=== PATIENT | female | born 1955 | race Caucasian/White ===

== ENCOUNTER 2018-11-30 17:36 | Inpatient (IN) | payer OTHER ==
[2018-11-30] MEDS ORDERED: HYDROCODONE/APAP (5/325) TAB NGT (19:00)
[2018-11-30] MEDS ORDERED: HYDROCODONE/APAP (5/325) TAB PO (19:00)
[2018-11-30] MEDS ORDERED: MECLIZINE 25 MG TAB PO (19:30)
[2018-11-30] MEDS ORDERED: ONDANSETRON 4 MG INJ IV (19:30)
[2018-11-30] MEDS ORDERED: INSULIN GLARGINE [LANTus] (100 UNITS/ML) SYG SC (20:00)
[2018-11-30] MEDS ORDERED: INSULIN ASPART [NOVOLOG] 3 ML PEN SC (21:00)
[2018-11-30] MEDS: PIPER-TAZO 3.375 GM IV (PMX) 100 ML IVPB (21:30)
[2018-11-30] MEDS: SOD CHLORIDE 0.9% 1,000 ML IV (21:30)
[2018-11-30] MEDS: LISINOPRIL 20 MG TAB PO (21:50)
[2018-11-30] MEDS: DOXYCYCLINE 100 MG TAB PO (21:50)
[2018-11-30] MEDS: METOPROLOL 25 MG TAB PO (21:51)
[2018-11-30] MEDS: INSULIN GLARGINE [LANTus] (100 UNITS/ML) SYG SC (22:01)
[2018-11-30] MEDS: INSULIN ASPART [NOVOLOG] 3 ML PEN SC (22:02)
[2018-11-30] MEDS: NA BICARBONATE 650 MG TAB PO (23:05)
[2018-12-01] MEDS: ACETAMINOPHEN 325 MG TAB PO ×3 (00:33→20:16)
[2018-12-01] MEDS: ACCU-CHEK XX (02:00)
[2018-12-01 05:15] LABS: ADD MAN DIFF? NO; BASOPHILS % 0.4 % (0.0-2.0); EOSINOPHILS # 0.1 10^3/ul (0.0-0.5); EOSINOPHILS % 0.7 % (0.0-7.0); HEMATOCRIT 33.7 % (37.0-47.0); HEMOGLOBIN 10.6 g/dl (12.0-16.0); LYMPHOCYTES # 1.5 10^3/ul (0.8-2.9); LYMPHOCYTES % 16.2 % (15.0-51.0); MEAN CORPUSCULAR HGB CONC 31.5 g/dl (32.0-37.0); MEAN PLATELET VOLUME 9.4 fl (7.4-10.4); MONOCYTE # 0.8 10^3/ul (0.3-0.9); MONOCYTES % 8.9 % (0.0-11.0); NEUTROPHIL # 6.6 10^3/ul (1.6-7.5); NEUTROPHILS % 72.9 % (39.0-77.0); PLATELET COUNT 242 10^3/UL (140-415); RED BLOOD COUNT 3.92 10^6/ul (4.20-5.40); RED CELL DISTRIBUTION WIDTH 12.9 % (11.5-14.5)
[2018-12-01 05:15] LABS: WHITE BLOOD COUNT 9.1 10^3/ul (4.8-10.8)
[2018-12-01] MEDS: PIPER-TAZO 3.375 GM IV (PMX) 100 ML IVPB ×3 (05:19→21:51)
[2018-12-01 05:46] LABS: ANION GAP 8 (5-13); BLOOD UREA NITROGEN 20 mg/dl (7-20); CALCIUM 8.2 mg/dl (8.4-10.2); CARBON DIOXIDE 26 mmol/L (21-31); CHLORIDE 107 mmol/L (97-110); CREATININE 1.13 mg/dl (0.44-1.00); Estimated GFR 48 mL/min (>60); GLUCOSE 218 mg/dl (70-220); POTASSIUM 3.8 mmol/L (3.5-5.1); SODIUM 141 mmol/L (135-144)
[2018-12-01] MEDS: DOXYCYCLINE 100 MG TAB PO ×2 (09:05→20:16)
[2018-12-01] MEDS: NA BICARBONATE 650 MG TAB PO ×2 (09:05→14:38)
[2018-12-01] MEDS: FERROUS SULFATE (EC) 325 MG TAB PO (09:06)
[2018-12-01] MEDS: METOPROLOL 25 MG TAB PO ×2 (09:06→20:21)
[2018-12-01] MEDS: FAMOTIDINE 20 MG TAB PO (09:06)
[2018-12-01] MEDS: LISINOPRIL 20 MG TAB PO ×2 (09:06→20:22)
[2018-12-01] MEDS: INSULIN ASPART [NOVOLOG] 3 ML PEN SC ×7 (09:12→20:35)
[2018-12-01] MEDS ORDERED: traMADol 50 MG TAB PO (16:30)
[2018-12-01] MEDS: SOD CHLORIDE 0.9% 1,000 ML IV (16:57)
[2018-12-01] MEDS: INSULIN GLARGINE [LANTus] (100 UNITS/ML) SYG SC (20:34)
[2018-12-02] MEDS: ACCU-CHEK XX (02:00)
[2018-12-02] MEDS: PIPER-TAZO 3.375 GM IV (PMX) 100 ML IVPB ×2 (05:13→14:04)
[2018-12-02 05:17] LABS: ADD MAN DIFF? NO
[2018-12-02 05:22] LABS: BASOPHIL # 0.1 10^3/ul (0.0-0.1); BASOPHILS % 0.5 % (0.0-2.0); EOSINOPHILS # 0.1 10^3/ul (0.0-0.5); EOSINOPHILS % 0.7 % (0.0-7.0); HEMATOCRIT 33.6 % (37.0-47.0); HEMOGLOBIN 10.8 g/dl (12.0-16.0); LYMPHOCYTES # 1.6 10^3/ul (0.8-2.9); LYMPHOCYTES % 16.2 % (15.0-51.0); MEAN CORPUSCULAR HEMOGLOBIN 27.5 pg (29.0-33.0); MEAN CORPUSCULAR HGB CONC 32.1 g/dl (32.0-37.0); MEAN CORPUSCULAR VOLUME 85.5 fl (82.0-101.0); MEAN PLATELET VOLUME 9.3 fl (7.4-10.4); MONOCYTE # 0.7 10^3/ul (0.3-0.9); NEUTROPHIL # 7.4 10^3/ul (1.6-7.5); NUCLEATED RED BLOOD CELLS% 0.2 /100WBC (0.0-0.0); PLATELET COUNT 285 10^3/UL (140-415); RED BLOOD COUNT 3.93 10^6/ul (4.20-5.40); RED CELL DISTRIBUTION WIDTH 12.8 % (11.5-14.5)
[2018-12-02 05:34] LABS: INR 1.22; PROTIME 15.5 Sec (11.9-14.9); PT RATIO 1.2
[2018-12-02 05:40] LABS: HEMOGLOBIN A1C 12.1 % (0-5.9)
[2018-12-02 05:54] LABS: ANION GAP 7 (5-13); BLOOD UREA NITROGEN 18 mg/dl (7-20); CALCIUM 8.1 mg/dl (8.4-10.2); CARBON DIOXIDE 27 mmol/L (21-31); CHLORIDE 107 mmol/L (97-110); CREATININE 1.14 mg/dl (0.44-1.00); Estimated GFR 48 mL/min (>60); GLUCOSE 155 mg/dl (70-220); POTASSIUM 3.7 mmol/L (3.5-5.1); SODIUM 141 mmol/L (135-144)
[2018-12-02] MEDS: DOXYCYCLINE 100 MG TAB PO (08:49)
[2018-12-02] MEDS: ACETAMINOPHEN 325 MG TAB PO ×2 (08:52→18:25)
[2018-12-02] MEDS: LISINOPRIL 20 MG TAB PO ×2 (09:11→20:33)
[2018-12-02] MEDS: METOPROLOL 25 MG TAB PO ×2 (09:11→20:33)
[2018-12-02] MEDS: FERROUS SULFATE (EC) 325 MG TAB PO (09:12)
[2018-12-02] MEDS: FAMOTIDINE 20 MG TAB PO (09:12)
[2018-12-02] MEDS: INSULIN ASPART [NOVOLOG] 3 ML PEN SC ×7 (09:13→20:40)
[2018-12-02] MEDS: SOD CHLORIDE 0.9% 1,000 ML IV (14:08)
[2018-12-02] MEDS ORDERED: GLUCAGON 1 MG INJ IM (17:00)
[2018-12-02] MEDS ORDERED: GLUCOSE GEL 15 GRAM TUBE PO ×2 (17:00)
[2018-12-02] MEDS ORDERED: DEXTROSE 50% 50 ML SYRINGE IV ×2 (17:00)
[2018-12-02] MEDS ORDERED: GLUCOSE GEL 15 GRAM TUBE BUCCAL (17:00)
[2018-12-02] MEDS ORDERED: NEOMYC/POLYMYX/BACIT 0.9 GM OINT (17:08)
[2018-12-02] MEDS: LINAGLIPTIN 5 MG TABLET PO (17:52)
[2018-12-02] MEDS: ENOXAPARIN 40 MG/0.4 ML SYG SC (17:55)
[2018-12-02] MEDS: NIFEdipine 10 MG CAP PO (19:45)
[2018-12-02] MEDS: AMOXICILLIN/CLAV 875 MG TAB PO (20:32)
[2018-12-02] MEDS: metroNIDAZOLE 250 MG TAB NGT (20:33)
[2018-12-02] MEDS: INSULIN GLARGINE [LANTus] (100 UNITS/ML) SYG SC (20:42)
[2018-12-02 20:49] LABS: ADD UMIC YES; UR ASCORBIC ACID NEGATIVE (NEGATIVE); UR BACTERIA FEW /HPF (NONE SEEN); UR BILIRUBIN (Dip) NEGATIVE (NEGATIVE); UR BLOOD (Dip) 1+ mg/dL (NEGATIVE); UR CLARITY SLIGHTLY CLOUDY (CLEAR); UR COLOR YELLOW (YELLOW); UR GLUCOSE (Dip) 1+ mg/dL (NEGATIVE); UR KETONES (Dip) NEGATIVE (NEGATIVE); UR LEUKOCYTE ESTERASE (Dip) NEGATIVE Leu/ul (NEGATIVE); UR NITRITE (Dip) NEGATIVE (NEGATIVE); UR RBC 6 /HPF (0-5); UR SPECIFIC GRAVITY (Dip) 1.014 (1.003-1.030); UR SQUAMOUS EPITHELIAL CELL FEW /HPF (FEW); UR TOTAL PROTEIN (Dip) 3+ mg/dl (NEGATIVE); UR UROBILINOGEN (Dip) NEGATIVE (NEGATIVE); UR WBC 2 /HPF (0-5)
[2018-12-02] MEDS: SACCHAROMYCES BOULARDII 250 MG CAP PO (21:53)
[2018-12-03] MEDS: NIFEdipine 10 MG CAP PO ×3 (00:50→12:51)
[2018-12-03] MEDS: ACCU-CHEK XX (03:00)
[2018-12-03 05:57] LABS: ADD MAN DIFF? NO
[2018-12-03 06:04] LABS: WHITE BLOOD COUNT 9.3 10^3/ul (4.8-10.8)
[2018-12-03 06:04] LABS: BASOPHIL # 0.1 10^3/ul (0.0-0.1); BASOPHILS % 0.5 % (0.0-2.0); EOSINOPHILS # 0.1 10^3/ul (0.0-0.5); EOSINOPHILS % 0.8 % (0.0-7.0); HEMATOCRIT 33.6 % (37.0-47.0); HEMOGLOBIN 10.5 g/dl (12.0-16.0); LYMPHOCYTES # 1.6 10^3/ul (0.8-2.9); LYMPHOCYTES % 16.9 % (15.0-51.0); MEAN CORPUSCULAR HEMOGLOBIN 26.9 pg (29.0-33.0); MEAN CORPUSCULAR HGB CONC 31.3 g/dl (32.0-37.0); MEAN CORPUSCULAR VOLUME 86.2 fl (82.0-101.0); MEAN PLATELET VOLUME 9.2 fl (7.4-10.4); MONOCYTE # 0.6 10^3/ul (0.3-0.9); MONOCYTES % 6.1 % (0.0-11.0); NEUTROPHIL # 6.7 10^3/ul (1.6-7.5); NEUTROPHILS % 71.7 % (39.0-77.0); PLATELET COUNT 275 10^3/UL (140-415); RED CELL DISTRIBUTION WIDTH 12.7 % (11.5-14.5)
[2018-12-03 07:00] LABS: ANION GAP 7 (5-13); BLOOD UREA NITROGEN 15 mg/dl (7-20); CALCIUM 8.2 mg/dl (8.4-10.2); CARBON DIOXIDE 28 mmol/L (21-31); CHLORIDE 106 mmol/L (97-110); CREATININE 1.09 mg/dl (0.44-1.00); Estimated GFR 50 mL/min (>60); GLUCOSE 190 mg/dl (70-220); POTASSIUM 3.2 mmol/L (3.5-5.1); SODIUM 141 mmol/L (135-144)
[2018-12-03] MEDS: SOD CHLORIDE 0.9% 1,000 ML IV ×2 (08:00→13:20)
[2018-12-03] MEDS: metroNIDAZOLE 250 MG TAB NGT ×3 (08:50→16:43)
[2018-12-03] MEDS: SACCHAROMYCES BOULARDII 250 MG CAP PO (08:50)
[2018-12-03] MEDS: AMOXICILLIN/CLAV 875 MG TAB PO (08:50)
[2018-12-03] MEDS: FAMOTIDINE 20 MG TAB PO (08:51)
[2018-12-03] MEDS: METOPROLOL 25 MG TAB PO (08:51)
[2018-12-03] MEDS: FERROUS SULFATE (EC) 325 MG TAB PO (08:51)
[2018-12-03] MEDS: LISINOPRIL 20 MG TAB PO (08:51)
[2018-12-03] MEDS: LINAGLIPTIN 5 MG TABLET PO (08:51)
[2018-12-03] MEDS: INSULIN ASPART [NOVOLOG] 3 ML PEN SC ×6 (08:52→17:55)
[2018-12-03] MEDS: ENOXAPARIN 40 MG/0.4 ML SYG SC (08:53)
[2018-12-03] MEDS: POTASSIUM CHLORIDE (SR) 20 MEQ TAB PO (16:43)
== END 2018-12-03 17:45 | disposition home or self-care (01) | DRG 758 ==
LOC: MS1 17:36
PROVIDERS: Internal Medicine
DX: N70.92 Oophoritis, unspecified (principal); Z68.41 Body mass index [BMI] 40.0-44.9, adult; N17.9 Acute kidney failure, unspecified; K76.6 Portal hypertension; D63.1 Anemia in chronic kidney disease; E11.65 Type 2 diabetes mellitus with hyperglycemia; E66.01 Morbid (severe) obesity due to excess calories; E11.22 Type 2 diabetes mellitus with diabetic chronic kidney disease; I12.9 Hypertensive chronic kidney disease with stage 1 through stage 4 chronic kidney disease, or unspecified chronic kidney disease; K76.0 Fatty (change of) liver, not elsewhere classified; K80.80 Other cholelithiasis without obstruction; K74.60 Unspecified cirrhosis of liver; N18.3 Chronic kidney disease, stage 3 (moderate); N83.8 Other noninflammatory disorders of ovary, fallopian tube and broad ligament; N83.202 Unspecified ovarian cyst, left side; R30.0 Dysuria; Z79.4 Long term (current) use of insulin
CPT/HCPCS: 76856; 80048; 81001; 82962; 83036; 85025; 85610

== ENCOUNTER 2018-12-26 22:40 | Inpatient (IN) | payer OTHER ==
[2018-12-26 23:16] LABS: ADD MAN DIFF? NO
[2018-12-26 23:23] LABS: ABNORMAL IP MESSAGE 1; BASOPHILS % 0.4 % (0.0-2.0); EOSINOPHILS % 0.2 % (0.0-7.0); HEMATOCRIT 40.8 % (37.0-47.0); HEMOGLOBIN 13.1 g/dl (12.0-16.0); LYMPHOCYTES # 0.5 10^3/ul (0.8-2.9); LYMPHOCYTES % 6.4 % (15.0-51.0); MEAN CORPUSCULAR HEMOGLOBIN 27.1 pg (29.0-33.0); MEAN CORPUSCULAR HGB CONC 32.1 g/dl (32.0-37.0); MEAN CORPUSCULAR VOLUME 84.5 fl (82.0-101.0); MEAN PLATELET VOLUME 10.5 fl (7.4-10.4); MONOCYTE # 0.4 10^3/ul (0.3-0.9); NEUTROPHIL # 7.2 10^3/ul (1.6-7.5); NEUTROPHILS % 87.6 % (39.0-77.0); PLATELET COUNT 220 10^3/UL (140-415); RED BLOOD COUNT 4.83 10^6/ul (4.20-5.40); RED CELL DISTRIBUTION WIDTH 13.4 % (11.5-14.5)
[2018-12-26 23:23] LABS: WHITE BLOOD COUNT 8.3 10^3/ul (4.8-10.8)
[2018-12-26] MEDS: SODIUM CHLORIDE 0.9% 1L BAG IV* (23:25)
[2018-12-26] MEDS: CEFEPIME 2GM/50 ML (PMX) 50 ML IVPB (23:25)
[2018-12-26 23:32] LABS: POSITIVE DIFF @See below
[2018-12-26 23:39] LABS: LACTIC ACID 1.9 mmol/L (0.5-2.0)
[2018-12-26 23:40] LABS: ALANINE AMINOTRANSFERASE 11 IU/L (13-69); ALBUMIN 3.9 g/dl (3.3-4.9); ALBUMIN/GLOBULIN RATIO 0.82; ALKALINE PHOSPHATASE 188 IU/L (42-121); ANION GAP 12 (5-13); ASPARTATE AMINO TRANSFERASE 32 IU/L (15-46); BILIRUBIN,INDIRECT 0.3 mg/dl (0-1.1); BILIRUBIN,TOTAL 0.3 mg/dl (0.2-1.3); BLOOD UREA NITROGEN 18 mg/dl (7-20); CALCIUM 9.7 mg/dl (8.4-10.2); CARBON DIOXIDE 23 mmol/L (21-31); CHLORIDE 103 mmol/L (97-110); CREATININE 1.07 mg/dl (0.44-1.00); Estimated GFR 51 mL/min (>60); GLUCOSE 241 mg/dl (70-220); POTASSIUM 4.8 mmol/L (3.5-5.1); SODIUM 138 mmol/L (135-144); TOTAL PROTEIN 8.6 g/dl (6.1-8.1)
[2018-12-26 23:41] LABS: PROTIME 13.3 Sec (11.9-14.9)
[2018-12-26 23:42] LABS: PARTIAL THROMBOPLASTIN TIME 31.1 Sec (23.0-35.0)
[2018-12-26 23:50] LABS: TROPONIN-I < 0.012 ng/ml (0.000-0.120)
[2018-12-27] MEDS: VANCOMYCIN 1 GM (PMX) 250 ML IVPB (00:12)
[2018-12-27] MEDS: ACETAMINOPHEN 325 MG TAB PO ×3 (00:14→19:33)
[2018-12-27 01:09] LABS: ADD UMIC YES; UR ASCORBIC ACID NEGATIVE (NEGATIVE); UR BACTERIA FEW /HPF (NONE SEEN); UR BILIRUBIN (Dip) NEGATIVE (NEGATIVE); UR BLOOD (Dip) 2+ mg/dL (NEGATIVE); UR CLARITY CLOUDY (CLEAR); UR COLOR RED (YELLOW); UR GLUCOSE (Dip) 2+ mg/dL (NEGATIVE); UR HYALINE CAST FEW /HPF (NONE SEEN); UR KETONES (Dip) NEGATIVE (NEGATIVE); UR LEUKOCYTE ESTERASE (Dip) TRACE Leu/ul (NEGATIVE); UR NITRITE (Dip) NEGATIVE (NEGATIVE); UR RBC 68 /HPF (0-5); UR SPECIFIC GRAVITY (Dip) 1.013 (1.003-1.030); UR SQUAMOUS EPITHELIAL CELL FEW /HPF (FEW); UR TOTAL PROTEIN (Dip) 3+ mg/dl (NEGATIVE); UR UROBILINOGEN (Dip) NEGATIVE (NEGATIVE); UR WBC 40 /HPF (0-5)
[2018-12-27 01:12] LABS: LACTIC ACID 1.4 mmol/L (0.5-2.0)
[2018-12-27 04:06] LABS: LACTIC ACID 1.1 mmol/L (0.5-2.0)
[2018-12-27] MEDS ORDERED: CEFTRIAXONE 1 GM/50 ML (PMX) 50 ML IVPB (05:00)
[2018-12-27] MEDS ORDERED: AZITHROMYCIN 500MG/NS (PMX) 250 ML IVPB (05:00)
[2018-12-27] MEDS ORDERED: CEFTRIAXONE 2 GM/50 ML (PMX) 50 ML IVPB (05:30)
[2018-12-27] MEDS: SOD CHLORIDE 0.9% 1,000 ML IV (05:41)
[2018-12-27] MEDS ORDERED: GLUCOSE GEL 15 GRAM TUBE BUCCAL (06:00)
[2018-12-27] MEDS ORDERED: DEXTROSE 50% 50 ML SYRINGE IV ×2 (06:00)
[2018-12-27] MEDS ORDERED: GLUCOSE GEL 15 GRAM TUBE PO ×2 (06:00)
[2018-12-27] MEDS ORDERED: GLUCAGON 1 MG INJ IM (06:00)
[2018-12-27] MEDS: ACCU-CHEK XX ×3 (07:00→21:00)
[2018-12-27] MEDS: ONDANSETRON 4 MG INJ IV (07:07)
[2018-12-27] MEDS: CEFTRIAXONE 2 GM/50 ML (PMX) 50 ML IVPB (08:02)
[2018-12-27] MEDS: AZITHROMYCIN 500MG/NS (PMX) 250 ML IVPB (08:02)
[2018-12-27] MEDS: AMLODIPINE 10 MG TAB PO (08:14)
[2018-12-27] MEDS: GABAPENTIN 300 MG CAP PO ×2 (08:15→21:03)
[2018-12-27] MEDS: BENAZEPRIL 40 MG TAB PO (08:15)
[2018-12-27] MEDS: LINAGLIPTIN 5 MG TABLET PO (08:15)
[2018-12-27] MEDS: ASPIRIN (EC) 81 MG TAB PO (08:15)
[2018-12-27] MEDS: ENOXAPARIN 30 MG/0.3 ML SYG SC (08:19)
[2018-12-27] MEDS ORDERED: LINAGLIPTIN 5 MG TABLET PO (09:00)
[2018-12-27] MEDS ORDERED: ASPIRIN 81 MG TAB PO (09:00)
[2018-12-27] MEDS ORDERED: CALCIUM CARBONATE 1.25 GM TAB PO ×2 (09:00)
[2018-12-27] MEDS ORDERED: BENAZEPRIL 40 MG TAB PO (09:00)
[2018-12-27] MEDS ORDERED: [UNRECOGNIZED DRUG - OTHER] PO (09:00)
[2018-12-27] MEDS ORDERED: AMLODIPINE 10 MG TAB PO (09:00)
[2018-12-27] MEDS ORDERED: CHOLECALCIFEROL 400 UNITS TAB PO (09:00)
[2018-12-27] MEDS ORDERED: METOPROLOL 25 MG TAB PO ×2 (09:00)
[2018-12-27] MEDS ORDERED: GABAPENTIN 300 MG CAP PO (09:00)
[2018-12-27] MEDS: METOPROLOL 25 MG TAB PO ×2 (09:38→21:16)
[2018-12-27] MEDS: CHOLECALCIFEROL 400 UNITS TAB PO (09:38)
[2018-12-27] MEDS: INSULIN ASPART [NOVOLOG] 3 ML PEN SC ×6 (09:39→21:08)
[2018-12-27] MEDS ORDERED: INSULIN GLARGINE [LANTus] (100 UNITS/ML) SYG SC ×2 (20:00)
[2018-12-27] MEDS: CALCIUM CARBONATE 1.25 GM TAB PO (21:03)
[2018-12-27] MEDS: INSULIN GLARGINE [LANTus] (100 UNITS/ML) SYG SC (21:08)
[2018-12-28] MEDS: SOD CHLORIDE 0.9% 1,000 ML IV ×3 (01:00→21:00)
[2018-12-28] MEDS ORDERED: ACCU-CHEK XX (02:00)
[2018-12-28] MEDS: ACCU-CHEK XX ×5 (02:46→21:00)
[2018-12-28 05:48] LABS: ADD MAN DIFF? NO
[2018-12-28 05:53] LABS: WHITE BLOOD COUNT 5.2 10^3/ul (4.8-10.8)
[2018-12-28 05:53] LABS: BASOPHILS % 0.4 % (0.0-2.0); EOSINOPHILS # 0.1 10^3/ul (0.0-0.5); EOSINOPHILS % 1.7 % (0.0-7.0); HEMATOCRIT 33.8 % (37.0-47.0); HEMOGLOBIN 10.6 g/dl (12.0-16.0); LYMPHOCYTES % 19.7 % (15.0-51.0); MEAN CORPUSCULAR HGB CONC 31.4 g/dl (32.0-37.0); MEAN PLATELET VOLUME 11.3 fl (7.4-10.4); MONOCYTE # 0.5 10^3/ul (0.3-0.9); MONOCYTES % 9.9 % (0.0-11.0); NEUTROPHIL # 3.6 10^3/ul (1.6-7.5); NEUTROPHILS % 67.9 % (39.0-77.0); PLATELET COUNT 163 10^3/UL (140-415); RED BLOOD COUNT 3.93 10^6/ul (4.20-5.40); RED CELL DISTRIBUTION WIDTH 13.6 % (11.5-14.5)
[2018-12-28] MEDS: CEFTRIAXONE 2 GM/50 ML (PMX) 50 ML IVPB (06:21)
[2018-12-28 06:27] LABS: PHOSPHORUS 3.3 mg/dl (2.5-4.9)
[2018-12-28 06:27] LABS: MAGNESIUM 1.5 mg/dl (1.7-2.5)
[2018-12-28 06:31] LABS: ANION GAP 6 (5-13); Estimated GFR 54 mL/min (>60)
[2018-12-28 06:33] LABS: BLOOD UREA NITROGEN 18 mg/dl (7-20); CALCIUM 8.2 mg/dl (8.4-10.2); CARBON DIOXIDE 23 mmol/L (21-31); CHLORIDE 109 mmol/L (97-110); CREATININE 1.02 mg/dl (0.44-1.00); GLUCOSE 215 mg/dl (70-220); POTASSIUM 4.3 mmol/L (3.5-5.1); SODIUM 138 mmol/L (135-144)
[2018-12-28] MEDS: AZITHROMYCIN 500MG/NS (PMX) 250 ML IVPB (07:06)
[2018-12-28] MEDS: INSULIN ASPART [NOVOLOG] 3 ML PEN SC ×8 (08:00→21:55)
[2018-12-28] MEDS: ENOXAPARIN 30 MG/0.3 ML SYG SC (08:16)
[2018-12-28] MEDS: GABAPENTIN 300 MG CAP PO ×2 (08:17→21:11)
[2018-12-28] MEDS: CALCIUM CARBONATE 1.25 GM TAB PO ×2 (08:17→21:12)
[2018-12-28] MEDS: LINAGLIPTIN 5 MG TABLET PO (08:17)
[2018-12-28] MEDS: CHOLECALCIFEROL 400 UNITS TAB PO (08:17)
[2018-12-28] MEDS: AMLODIPINE 10 MG TAB PO (08:17)
[2018-12-28] MEDS: ASPIRIN (EC) 81 MG TAB PO (08:17)
[2018-12-28] MEDS: BENAZEPRIL 40 MG TAB PO (08:18)
[2018-12-28] MEDS: METOPROLOL 25 MG TAB PO ×2 (08:18→21:12)
[2018-12-28] MEDS: MAGNESIUM SULFATE 2 GM/50 ML 50 ML IVPB (10:41)
[2018-12-28] MEDS: ACETAMINOPHEN 325 MG TAB PO (10:41)
[2018-12-28] MEDS: FLUCONAZOLE 100 MG TAB PO (16:09)
[2018-12-28] MEDS: INSULIN GLARGINE [LANTus] (100 UNITS/ML) SYG SC (21:15)
[2018-12-28] MEDS ORDERED: INSULIN ASPART [NOVOLOG] 3 ML PEN SC (21:30)
[2018-12-29] MEDS: SOD CHLORIDE 0.9% 1,000 ML IV ×2 (01:17→17:00)
[2018-12-29] MEDS: ACCU-CHEK XX ×5 (02:00→21:00)
[2018-12-29] MEDS: AZITHROMYCIN 500MG/NS (PMX) 250 ML IVPB (05:14)
[2018-12-29 05:35] LABS: ADD MAN DIFF? NO
[2018-12-29 05:38] LABS: BASOPHILS % 0.2 % (0.0-2.0); HEMATOCRIT 32.4 % (37.0-47.0); HEMOGLOBIN 10.1 g/dl (12.0-16.0); LYMPHOCYTES # 1.1 10^3/ul (0.8-2.9); LYMPHOCYTES % 25.7 % (15.0-51.0); MEAN CORPUSCULAR HGB CONC 31.2 g/dl (32.0-37.0); MEAN CORPUSCULAR VOLUME 86.6 fl (82.0-101.0); MEAN PLATELET VOLUME 10.7 fl (7.4-10.4); MONOCYTE # 0.6 10^3/ul (0.3-0.9); NEUTROPHIL # 2.4 10^3/ul (1.6-7.5); NEUTROPHILS % 57.6 % (39.0-77.0); PLATELET COUNT 168 10^3/UL (140-415); RED BLOOD COUNT 3.74 10^6/ul (4.20-5.40); RED CELL DISTRIBUTION WIDTH 13.2 % (11.5-14.5)
[2018-12-29 05:38] LABS: WHITE BLOOD COUNT 4.1 10^3/ul (4.8-10.8)
[2018-12-29 06:10] LABS: ANION GAP 5 (5-13); BLOOD UREA NITROGEN 14 mg/dl (7-20); CALCIUM 8.5 mg/dl (8.4-10.2); CARBON DIOXIDE 25 mmol/L (21-31); CHLORIDE 106 mmol/L (97-110); Estimated GFR > 60 mL/min (>60); GLUCOSE 221 mg/dl (70-220); POTASSIUM 4.4 mmol/L (3.5-5.1); SODIUM 136 mmol/L (135-144)
[2018-12-29 06:17] LABS: PHOSPHORUS 3.2 mg/dl (2.5-4.9)
[2018-12-29 06:17] LABS: MAGNESIUM 1.8 mg/dl (1.7-2.5)
[2018-12-29] MEDS: CEFTRIAXONE 2 GM/50 ML (PMX) 50 ML IVPB (06:23)
[2018-12-29] MEDS: INSULIN ASPART [NOVOLOG] 3 ML PEN SC ×5 (08:47→21:05)
[2018-12-29] MEDS: FLUCONAZOLE 100 MG TAB PO (08:58)
[2018-12-29] MEDS: CALCIUM CARBONATE 1.25 GM TAB PO ×2 (08:58→20:59)
[2018-12-29] MEDS: GABAPENTIN 300 MG CAP PO ×2 (08:58→21:00)
[2018-12-29] MEDS: CHOLECALCIFEROL 400 UNITS TAB PO (08:58)
[2018-12-29] MEDS: ASPIRIN (EC) 81 MG TAB PO (08:58)
[2018-12-29] MEDS: LINAGLIPTIN 5 MG TABLET PO (09:00)
[2018-12-29] MEDS: BENAZEPRIL 40 MG TAB PO (09:01)
[2018-12-29] MEDS: AMLODIPINE 10 MG TAB PO (09:01)
[2018-12-29] MEDS: METOPROLOL 25 MG TAB PO ×2 (09:01→21:00)
[2018-12-29] MEDS: ENOXAPARIN 30 MG/0.3 ML SYG SC (09:03)
[2018-12-29] MEDS: DOCUSATE SODIUM 100 MG CAP PO ×2 (12:03→20:59)
[2018-12-29] MEDS: MAGNESIUM HYDROXIDE 30ML CUP PO (12:03)
[2018-12-29] MEDS: INSULIN GLARGINE [LANTus] (100 UNITS/ML) SYG SC (21:04)
[2018-12-30] MEDS: ACCU-CHEK XX ×5 (02:00→21:00)
[2018-12-30] MEDS: SOD CHLORIDE 0.9% 1,000 ML IV (05:34)
[2018-12-30] MEDS: AZITHROMYCIN 500MG/NS (PMX) 250 ML IVPB (05:34)
[2018-12-30 06:04] LABS: ADD MAN DIFF? NO
[2018-12-30 06:06] LABS: WHITE BLOOD COUNT 4.1 10^3/ul (4.8-10.8)
[2018-12-30 06:06] LABS: BASOPHILS % 0.7 % (0.0-2.0); EOSINOPHILS # 0.1 10^3/ul (0.0-0.5); EOSINOPHILS % 3.4 % (0.0-7.0); HEMATOCRIT 33.8 % (37.0-47.0); HEMOGLOBIN 10.6 g/dl (12.0-16.0); LYMPHOCYTES # 1.5 10^3/ul (0.8-2.9); LYMPHOCYTES % 36.6 % (15.0-51.0); MEAN CORPUSCULAR HGB CONC 31.4 g/dl (32.0-37.0); MEAN PLATELET VOLUME 10.1 fl (7.4-10.4); MONOCYTE # 0.5 10^3/ul (0.3-0.9); MONOCYTES % 12.8 % (0.0-11.0); NEUTROPHIL # 1.9 10^3/ul (1.6-7.5); NEUTROPHILS % 46.3 % (39.0-77.0); PLATELET COUNT 190 10^3/UL (140-415); RED BLOOD COUNT 3.93 10^6/ul (4.20-5.40)
[2018-12-30 06:24] LABS: ANION GAP 5 (5-13); BLOOD UREA NITROGEN 15 mg/dl (7-20); CARBON DIOXIDE 27 mmol/L (21-31); CHLORIDE 107 mmol/L (97-110); CREATININE 0.99 mg/dl (0.44-1.00); Estimated GFR 56 mL/min (>60); GLUCOSE 191 mg/dl (70-220); POTASSIUM 4.2 mmol/L (3.5-5.1); SODIUM 139 mmol/L (135-144)
[2018-12-30 06:35] LABS: MAGNESIUM 1.7 mg/dl (1.7-2.5)
[2018-12-30 06:35] LABS: PHOSPHORUS 4.2 mg/dl (2.5-4.9)
[2018-12-30] MEDS: CEFTRIAXONE 2 GM/50 ML (PMX) 50 ML IVPB (06:57)
[2018-12-30] MEDS: ASPIRIN (EC) 81 MG TAB PO (08:37)
[2018-12-30] MEDS: LINAGLIPTIN 5 MG TABLET PO (08:37)
[2018-12-30] MEDS: DOCUSATE SODIUM 100 MG CAP PO (08:37)
[2018-12-30] MEDS: CHOLECALCIFEROL 400 UNITS TAB PO (08:37)
[2018-12-30] MEDS: FLUCONAZOLE 100 MG TAB PO (08:37)
[2018-12-30] MEDS: CALCIUM CARBONATE 1.25 GM TAB PO ×2 (08:37→20:30)
[2018-12-30] MEDS: GABAPENTIN 300 MG CAP PO ×2 (08:37→20:30)
[2018-12-30] MEDS: BENAZEPRIL 40 MG TAB PO (08:38)
[2018-12-30] MEDS: METOPROLOL 25 MG TAB PO ×2 (08:38→20:30)
[2018-12-30] MEDS: AMLODIPINE 10 MG TAB PO (08:38)
[2018-12-30] MEDS: INSULIN ASPART [NOVOLOG] 3 ML PEN SC ×7 (08:42→20:32)
[2018-12-30] MEDS: ENOXAPARIN 30 MG/0.3 ML SYG SC (08:43)
[2018-12-30] MEDS: FUROSEMIDE 20 MG INJ IV (17:35)
[2018-12-30] MEDS: INSULIN GLARGINE [LANTus] (100 UNITS/ML) SYG SC (20:44)
[2018-12-31] MEDS ORDERED: INSULIN ASPART [NOVOLOG] 3 ML PEN SC (02:00)
[2018-12-31] MEDS: ACCU-CHEK XX ×5 (02:00→21:00)
[2018-12-31] MEDS: AZITHROMYCIN 500MG/NS (PMX) 250 ML IVPB (05:17)
[2018-12-31] MEDS: FUROSEMIDE 20 MG INJ IV ×2 (05:21→17:43)
[2018-12-31 07:09] LABS: ALANINE AMINOTRANSFERASE 15 IU/L (13-69); ALBUMIN 3.2 g/dl (3.3-4.9); ALBUMIN/GLOBULIN RATIO 0.76; ALKALINE PHOSPHATASE 155 IU/L (42-121); ANION GAP 10 (5-13); ASPARTATE AMINO TRANSFERASE 34 IU/L (15-46); BILIRUBIN,INDIRECT 0.1 mg/dl (0-1.1); BILIRUBIN,TOTAL 0.1 mg/dl (0.2-1.3); BLOOD UREA NITROGEN 17 mg/dl (7-20); CALCIUM 9.5 mg/dl (8.4-10.2); CARBON DIOXIDE 28 mmol/L (21-31); CHLORIDE 102 mmol/L (97-110); CREATININE 0.93 mg/dl (0.44-1.00); Estimated GFR > 60 mL/min (>60); GLUCOSE 148 mg/dl (70-220); POTASSIUM 3.8 mmol/L (3.5-5.1); SODIUM 140 mmol/L (135-144); TOTAL PROTEIN 7.4 g/dl (6.1-8.1)
[2018-12-31] MEDS: INSULIN ASPART [NOVOLOG] 3 ML PEN SC ×7 (08:05→20:35)
[2018-12-31] MEDS: FLUCONAZOLE 100 MG TAB PO (08:10)
[2018-12-31] MEDS: CALCIUM CARBONATE 1.25 GM TAB PO ×2 (08:10→20:32)
[2018-12-31] MEDS: ASPIRIN (EC) 81 MG TAB PO (08:10)
[2018-12-31] MEDS: GABAPENTIN 300 MG CAP PO ×2 (08:10→20:32)
[2018-12-31] MEDS: CEFTRIAXONE 2 GM/50 ML (PMX) 50 ML IVPB (08:10)
[2018-12-31] MEDS: LINAGLIPTIN 5 MG TABLET PO (08:10)
[2018-12-31] MEDS: ENOXAPARIN 30 MG/0.3 ML SYG SC (08:11)
[2018-12-31] MEDS: BENAZEPRIL 40 MG TAB PO (08:12)
[2018-12-31] MEDS: AMLODIPINE 10 MG TAB PO (08:12)
[2018-12-31] MEDS: METOPROLOL 25 MG TAB PO ×2 (08:12→20:32)
[2018-12-31] MEDS: CHOLECALCIFEROL 400 UNITS TAB PO (08:14)
[2018-12-31] MEDS: INSULIN GLARGINE [LANTus] (100 UNITS/ML) SYG SC (20:34)
[2019-01-01] MEDS: ACCU-CHEK XX ×5 (01:40→20:13)
[2019-01-01] MEDS: FUROSEMIDE 20 MG INJ IV ×2 (06:31→18:03)
[2019-01-01] MEDS: CEFTRIAXONE 2 GM/50 ML (PMX) 50 ML IVPB (06:31)
[2019-01-01] MEDS: INSULIN ASPART [NOVOLOG] 3 ML PEN SC ×7 (07:45→20:08)
[2019-01-01] MEDS: LINAGLIPTIN 5 MG TABLET PO (07:49)
[2019-01-01] MEDS: CHOLECALCIFEROL 400 UNITS TAB PO (08:54)
[2019-01-01] MEDS: ASPIRIN (EC) 81 MG TAB PO (08:54)
[2019-01-01] MEDS: FLUCONAZOLE 100 MG TAB PO (08:54)
[2019-01-01] MEDS: BENAZEPRIL 40 MG TAB PO (08:54)
[2019-01-01] MEDS: CALCIUM CARBONATE 1.25 GM TAB PO ×2 (08:54→20:12)
[2019-01-01] MEDS: GABAPENTIN 300 MG CAP PO ×2 (08:54→20:11)
[2019-01-01] MEDS: METOPROLOL 25 MG TAB PO ×2 (08:55→20:12)
[2019-01-01] MEDS: AMLODIPINE 10 MG TAB PO (08:55)
[2019-01-01] MEDS: ENOXAPARIN 30 MG/0.3 ML SYG SC (08:58)
[2019-01-01] MEDS: INSULIN GLARGINE [LANTus] (100 UNITS/ML) SYG SC (20:07)
[2019-01-02] MEDS: ACCU-CHEK XX ×4 (02:00→17:43)
[2019-01-02] MEDS: CEFTRIAXONE 2 GM/50 ML (PMX) 50 ML IVPB (06:24)
[2019-01-02] MEDS: FUROSEMIDE 20 MG INJ IV ×2 (06:25→17:41)
[2019-01-02] MEDS: INSULIN ASPART [NOVOLOG] 3 ML PEN SC ×6 (07:59→17:41)
[2019-01-02] MEDS: ASPIRIN (EC) 81 MG TAB PO (08:33)
[2019-01-02] MEDS: CHOLECALCIFEROL 400 UNITS TAB PO (08:33)
[2019-01-02] MEDS: LINAGLIPTIN 5 MG TABLET PO (08:33)
[2019-01-02] MEDS: CALCIUM CARBONATE 1.25 GM TAB PO (08:33)
[2019-01-02] MEDS: GABAPENTIN 300 MG CAP PO (08:33)
[2019-01-02] MEDS: METOPROLOL 25 MG TAB PO (08:34)
[2019-01-02] MEDS: AMLODIPINE 10 MG TAB PO (08:34)
[2019-01-02] MEDS: BENAZEPRIL 40 MG TAB PO (08:35)
[2019-01-02] MEDS: ENOXAPARIN 30 MG/0.3 ML SYG SC (08:37)
== END 2019-01-02 19:10 | disposition home or self-care (01) | DRG 871 ==
LOC: E/R 22:40 → 2NE 12-27 02:16
DX: A41.51 Sepsis due to Escherichia coli [E. coli] (principal); J18.9 Pneumonia, unspecified organism; N10 Acute pyelonephritis; Z68.41 Body mass index [BMI] 40.0-44.9, adult; E11.40 Type 2 diabetes mellitus with diabetic neuropathy, unspecified; J20.9 Acute bronchitis, unspecified; I12.9 Hypertensive chronic kidney disease with stage 1 through stage 4 chronic kidney disease, or unspecified chronic kidney disease; E11.22 Type 2 diabetes mellitus with diabetic chronic kidney disease; E11.65 Type 2 diabetes mellitus with hyperglycemia; N18.3 Chronic kidney disease, stage 3 (moderate); E66.01 Morbid (severe) obesity due to excess calories; Z79.4 Long term (current) use of insulin
CPT/HCPCS: 36415; 71045; 76856; 80048; 80053; 81001; 82962; 83605; 83735; 84100; 84484; 85025; 85610; 85730; 87040-91; 87081; 87086; 87400; 93005; 96374; 96375; 99291-25